=== PATIENT | female | born 1945 | race American Indian/Alaskan Native ===

== ENCOUNTER 2019-11-30 15:12 | Observation (INO) | payer MEDICARE ==
[2019-11-30] MEDS ORDERED: hydrALAZINE 20 MG/1 ML INJ IV ONE (16:11)
--- NOTE | 2019-11-30 16:12 | Emergency Department Report ---
ED General Adult HPI - General Chief complaint: High BP Stated complaint: HIGH BP/WEAKNESS Time Seen by Provider: 11/30/19 15:56 Source: patient, EMS (EMS documentation not available at this time.), RN notes reviewed Mode of arrival: Ambulatory Limitations: No Limitations, Physical Limitation - History of Present Illness Initial comments: This is a 74-year-old female. This patient is not known to myself previously. She has a history of hypertension. She ran out of her medications 4-6 weeks ago. She does not know the specific names of her medications. She did have a primary care doctor, on [place], but secondary to change in insurance, was not able to follow-up. Subsequently, was not able to get her antihypertensive medications refilled. She is brought to the hospital by EMS with a complaint of weakness, initially painless, dizziness, and feeling off balance. Her weakness and feeling off balance started at 11:00 this morning. There is initially no complaint of headache, neck pain, chest pain, abdominal pain, shortness of breath. She denies focal extremity weakness and or numbness. Symptoms worsen when she attempts to walk. There is no tinnitus, no change in auditory acuity. No recent viral syndrome/symptoms. -: Gradual, hour(s) Severity scale (0 -10): 0 Quality: other Consistency: other Improves with: other Worsens with: other Associated Symptoms: other - Related Data Allergies Allergy/AdvReac Type Severity Reaction Status Date / Time No Known Allergies Allergy Verified 11/30/19 17:15 ED Review of Systems ROS: Stated complaint: HIGH BP/WEAKNESS Other details as noted in HPI Constitutional: malaise. denies: fever Eyes: denies: eye discharge, vision change ENT: denies: congestion Respiratory: denies: wheezing Cardiovascular: denies: chest pain, syncope Gastrointestinal: denies: abdominal pain Genitourinary: denies: dysuria Musculoskeletal: denies: back pain Skin: denies: lesions Neurological: weakness, abnormal gait Psychiatric: anxiety Hematological/Lymphatic: denies: easy bleeding ED Past Medical Hx - Past Medical History Previous Medical History?: Yes Hx Hypertension: Yes - Surgical History Past Surgical History?: Yes - Social History Smoking Status: Never Smoker Substance Use Type: None ED Physical Exam - General Limitations: Physical Limitation General appearance: alert, in no apparent distress, anxious - Head Head exam: Present: atraumatic, normocephalic - Eye Eye exam: Present: normal appearance, PERRL, EOMI, other (visual acuity intact to finger counting and color perception at a close distance). Absent: nystagmus - ENT ENT exam: Present: normal exam, normal orophraynx, mucous membranes moist, normal external ear exam - Neck Neck exam: Present: normal inspection, full ROM. Absent: tenderness, meningismus - Respiratory Respiratory exam: Present: normal lung sounds bilaterally. Absent: respiratory distress - Cardiovascular Cardiovascular Exam: Present: regular rate, normal rhythm, normal heart sounds. Absent: bradycardia, tachycardia, irregular rhythm, systolic murmur, diastolic murmur, rubs, gallop - GI/Abdominal GI/Abdominal exam: Present: soft. Absent: distended, tenderness, guarding, rebound, rigid - Extremities Exam Extremities exam: Present: normal inspection, full ROM, other (2+ pulses noted in the bilateral upper and lower extremities. There is no long bony tenderness. The pelvis is stable. The muscular compartments are soft. There is no palpable cord. There is no redness, pus or streaking.). Absent: pedal edema, calf tenderness - Back Exam Back exam: Present: normal inspection, full ROM. Absent: tenderness, CVA tenderness (R), CVA tenderness (L), paraspinal tenderness, vertebral tenderness - Neurological Exam Neurological exam: Present: alert (there is no past-pointing. There is normal [id number]. There is no pronator drift), oriented X3, abnormal gait, other (there is no facial droop. The tongue is midline. The extraocular movements are intact bilaterally. There is 5/5 strength in the bilateral upper and lower extremities. Sensation is intact to light touch in the bilateral upper and lower extremities. Hearing is intact. Tongue is midline. Speech is fluid, lucent and intact. Appropriate thought content. V1, V2, V3 intact bilaterally. Walks with a steady gait. There is no past-pointing. There is normal [id number]. There is a negative Romberg examination.). Absent: motor sensory deficit - Psychiatric Psychiatric exam: Present: anxious - Skin Skin exam: Present: warm, dry, intact, normal color. Absent: rash ED Course Vital Signs 11/30/19 11/30/19 11/30/19 15:20 15:30 15:33 Temperature 97.2 F L Pulse Rate 69 69 69 Respiratory 17 18 17 Rate Blood Pressure 207/180 207/180 Blood Pressure 257/94 [Left] O2 Sat by Pulse 95 96 95 Oximetry 11/30/19 11/30/19 11/30/19 15:46 16:00 16:32 Temperature Pulse Rate 69 65 74 Respiratory 13 14 10 L Rate Blood Pressure 231/89 257/94 254/102 Blood Pressure [Left] O2 Sat by Pulse 96 97 99 Oximetry 11/30/19 11/30/19 11/30/19 16:46 17:00 17:16 Temperature Pulse Rate 70 77 81 Respiratory 15 19 20 Rate Blood Pressure 265/103 265/103 254/102 Blood Pressure [Left] O2 Sat by Pulse 98 99 100 Oximetry 11/30/19 11/30/19 11/30/19 17:30 17:46 18:00 Temperature Pulse Rate 82 82 78 Respiratory 15 16 14 Rate Blood Pressure 238/96 245/104 245/104 Blood Pressure [Left] O2 Sat by Pulse 100 100 100 Oximetry 11/30/19 11/30/19 11/30/19 19:00 19:15 19:30 Temperature Pulse Rate 86 87 87 Respiratory 17 16 16 Rate Blood Pressure 156/86 178/74 185/69 Blood Pressure [Left] O2 Sat by Pulse 99 97 97 Oximetry - Reevaluation(s) Reevaluation #1: 11/30/19 17:21 Differential diagnosis, including without limited to: Peripheral vertigo, central vertigo, posterior reversible hypertensive encephalopathy,/press, hypertensive urgency/emergency Assessment and plan: 74-year-old female presenting with extreme hypertension, feeling off balance, initially with no headache or neck pain. Has an NIH score of 0. Presents more than 4.5 hours after symptom onset, and is therefore not a TPA candidate. Her history, and physical examination do not suggest a large vessel occlusion. She is seen in consultation with stroke neurology, Dr. Dewey, who agrees with the aforementioned, we both agree that press syndrome is unlikely at this time, as the patient is not encephalopathic. While in the emergency room, the patient developed central chest pain, aching and dull in nature, which does not radiate anywhere. Her blood pressures in the 250s. She has equal pulses in the upper and lower extremities. Emergent CT scan ordered to exclude aortic dissection. Cardene ordered. Repeat EKG ordered. Pain medications ordered. We will reassess after CT scan has resulted. If no dissection is noted, plan to admit the patient to this medical service for hypertensive urgency, and chest pain risk stratification. Reevaluation #2: 11/30/19 20:01 CT angiogram chest, abdomen, pelvis negative for acute aortic disease. Blood pressure in the 180s. We will discontinue nicardipine drip at this time. Case is presented to the hospital nurse practitioner, Steven Mcghee, working with Dr Guzmán patient accepted to the medical service ED Medical Decision Making - Lab Data Result diagrams: 11/30/19 16:25 11/30/19 16:25 Vital Signs 11/30/19 11/30/19 11/30/19 15:20 15:30 15:33 Temperature 97.2 F L Pulse Rate 69 69 69 Respiratory 17 18 17 Rate Blood Pressure 207/180 207/180 Blood Pressure 257/94 [Left] O2 Sat by Pulse 95 96 95 Oximetry 11/30/19 11/30/19 11/30/19 15:46 16:00 16:32 Temperature Pulse Rate 69 65 74 Respiratory 13 14 10 L Rate Blood Pressure 231/89 257/94 254/102 Blood Pressure [Left] O2 Sat by Pulse 96 97 99 Oximetry 11/30/19 11/30/19 16:46 17:00 Temperature Pulse Rate 70 77 Respiratory 15 19 Rate Blood Pressure 265/103 265/103 Blood Pressure [Left] O2 Sat by Pulse 98 99 Oximetry Lab Results 11/30/19 11/30/19 11/30/19 Range/Units 16:25 16:25 16:25 WBC 8.8 (4.5-11.0) K/mm3 RBC 4.26 (3.65-5.03) M/mm3 Hgb 11.9 (10.1-14.3) gm/dl Hct 36.6 (30.3-42.9) % MCV 86 (79-97) fl MCH 28 (28-32) pg MCHC 33 (30-34) % RDW 15.4 H (13.2-15.2) % Plt Count 187 (140-440) K/mm3 Lymph % (Auto) 13.5 (13.4-35.0) % [place] % (Auto) 2.4 (0.0-7.3) % Eos % (Auto) 0.2 (0.0-4.3) % Baso % (Auto) 0.3 (0.0-1.8) % Lymph # 1.2 (1.2-5.4) K/mm3 [place] # 0.2 (0.0-0.8) K/mm3 Eos # 0.0 (0.0-0.4) K/mm3 Baso # 0.0 (0.0-0.1) K/mm3 Seg Neutrophils % 83.6 H (40.0-70.0) % Seg Neutrophils # 7.4 (1.8-7.7) K/mm3 PT 15.0 H (12.2-14.9) Sec. INR 1.16 H (0.87-1.13) APTT 28.7 (24.2-36.6) Sec. Thrombin Time 18.4 (15.1-19.6) Sec. Sodium 142 (137-145) mmol/L Potassium 3.0 L (3.6-5.0) mmol/L Chloride 103.9 (98-107) mmol/L Carbon Dioxide 20 L (22-30) mmol/L Anion Gap 21 mmol/L BUN 14 (7-17) mg/dL Creatinine 1.2 (0.7-1.2) mg/dL Estimated GFR 44 ml/min BUN/Creatinine Ratio 12 % Glucose 183 H (65-100) mg/dL POC Glucose (70-105) Calcium 9.0 (8.4-10.2) mg/dL Magnesium (1.7-2.3) mg/dL Total Bilirubin 0.40 (0.1-1.2) mg/dL AST 23 (5-40) units/L ALT 15 (7-56) units/L Alkaline Phosphatase 1076 H (35-129) units/L Total Creatine Kinase 195 H (30-135) units/L CK-MB (CK-2) 3.5 (0.0-4.0) ng/mL CK-MB (CK-2) Rel Index 1.7 (0-4) Troponin T < 0.010 (0.00-0.029) ng/mL Total Protein 7.5 (6.3-8.2) g/dL Albumin 4.1 (3.9-5) g/dL Albumin/Globulin Ratio 1.2 % TSH (0.270-4.200) mlU/mL Plasma/Serum Alcohol (0-0.07) % 11/30/19 11/30/19 11/30/19 Range/Units 16:25 16:25 16:25 WBC (4.5-11.0) K/mm3 RBC (3.65-5.03) M/mm3 Hgb (10.1-14.3) gm/dl Hct (30.3-42.9) % MCV (79-97) fl MCH (28-32) pg MCHC (30-34) % RDW (13.2-15.2) % Plt Count (140-440) K/mm3 Lymph % (Auto) (13.4-35.0) % [place] % (Auto) (0.0-7.3) % Eos % (Auto) (0.0-4.3) % Baso % (Auto) (0.0-1.8) % Lymph # (1.2-5.4) K/mm3 [place] # (0.0-0.8) K/mm3 Eos # (0.0-0.4) K/mm3 Baso # (0.0-0.1) K/mm3 Seg Neutrophils % (40.0-70.0) % Seg Neutrophils # (1.8-7.7) K/mm3 PT (12.2-14.9) Sec. INR (0.87-1.13) APTT (24.2-36.6) Sec. Thrombin Time (15.1-19.6) Sec. Sodium (137-145) mmol/L Potassium (3.6-5.0) mmol/L Chloride (98-107) mmol/L Carbon Dioxide (22-30) mmol/L Anion Gap mmol/L BUN (7-17) mg/dL Creatinine (0.7-1.2) mg/dL Estimated GFR ml/min BUN/Creatinine Ratio % Glucose (65-100) mg/dL POC Glucose (70-105) Calcium (8.4-10.2) mg/dL Magnesium 1.70 (1.7-2.3) mg/dL Total Bilirubin (0.1-1.2) mg/dL AST (5-40) units/L ALT (7-56) units/L Alkaline Phosphatase (35-129) units/L Total Creatine Kinase 192 H (30-135) units/L CK-MB (CK-2) (0.0-4.0) ng/mL CK-MB (CK-2) Rel Index (0-4) Troponin T (0.00-0.029) ng/mL Total Protein (6.3-8.2) g/dL Albumin (3.9-5) g/dL Albumin/Globulin Ratio % TSH 0.088 L (0.270-4.200) mlU/mL Plasma/Serum Alcohol < 0.01 (0-0.07) % 11/30/19 Range/Units 16:27 WBC (4.5-11.0) K/mm3 RBC (3.65-5.03) M/mm3 Hgb (10.1-14.3) gm/dl Hct (30.3-42.9) % MCV (79-97) fl MCH (28-32) pg MCHC (30-34) % RDW (13.2-15.2) % Plt Count (140-440) K/mm3 Lymph % (Auto) (13.4-35.0) % [place] % (Auto) (0.0-7.3) % Eos % (Auto) (0.0-4.3) % Baso % (Auto) (0.0-1.8) % Lymph # (1.2-5.4) K/mm3 [place] # (0.0-0.8) K/mm3 Eos # (0.0-0.4) K/mm3 Baso # (0.0-0.1) K/mm3 Seg Neutrophils % (40.0-70.0) % Seg Neutrophils # (1.8-7.7) K/mm3 PT (12.2-14.9) Sec. INR (0.87-1.13) APTT (24.2-36.6) Sec. Thrombin Time (15.1-19.6) Sec. Sodium (137-145) mmol/L Potassium (3.6-5.0) mmol/L Chloride (98-107) mmol/L Carbon Dioxide (22-30) mmol/L Anion Gap mmol/L BUN (7-17) mg/dL Creatinine (0.7-1.2) mg/dL Estimated GFR ml/min BUN/Creatinine Ratio % Glucose (65-100) mg/dL POC Glucose 187 H (70-105) Calcium (8.4-10.2) mg/dL Magnesium (1.7-2.3) mg/dL Total Bilirubin (0.1-1.2) mg/dL AST (5-40) units/L ALT (7-56) units/L Alkaline Phosphatase (35-129) units/L Total Creatine Kinase (30-135) units/L CK-MB (CK-2) (0.0-4.0) ng/mL CK-MB (CK-2) Rel Index (0-4) Troponin T (0.00-0.029) ng/mL Total Protein (6.3-8.2) g/dL Albumin (3.9-5) g/dL Albumin/Globulin Ratio % TSH (0.270-4.200) mlU/mL Plasma/Serum Alcohol (0-0.07) % - EKG Data EKG shows normal: sinus rhythm Rate: normal - EKG Data When compared to previous EKG there are: previous EKG unavailable 11/30/19 17:13 There is no prior EKG available for comparison. This is a sinus rhythm, with a left axis deviation, rate 70 bpm, DE interval is prolonged, QTC is prolonged, there is motion artifact, left ventricular hypertrophy, not a STEMI - Radiology Data Radiology results: report reviewed, image reviewed [facility] [address] [place] [address] Cat Scan Report Signed Patient: YEMI RODRIGUEZ MR#: [id number] : 1945 Acct:[id number] Age/Sex: 74 / F ADM Date: 11/30/19 Loc: ED Attending Dr: Ordering Physician: MAGGY ORTIZ MD Date of Service: 11/30/19 Procedure(s): CT head/brain wo con Accession Number(s): [id number] cc: MAGGY ORTIZ MD CT head/brain wo con INDICATION / CLINICAL INFORMATION: 74 years Female; Stroke symptoms. TECHNIQUE: Routine CT head without contrast. All CT scans at this location are performed using CT dose reduction for ALARA by means of automated exposure control. COMPARISON: None. FINDINGS: BRAIN / INTRACRANIAL CONTENTS: There is extensive cerebral white matter disease most consistent with advanced microvascular angiopathy. The findings include the ganglia capsular regions, greater on the left and correlation would be needed at regarding underlying acute ischemia given the extent of findings and patient's history of unspecified "stroke symptoms". There is mild cerebral atrophy. The ventricular system is correspondingly appropriate in size and configuration. There is no clear CT evidence of acute intracranial hemorrhage or significant mass effect. ORBITS: No significant abnormality of visualized orbits. SINUSES / MASTOIDS: There is a 2 cm retention cysts within the visualized inferior right maxillary sinus. CRANIOCERVICAL JUNCTION: No significant abnormality. ADDITIONAL FINDINGS: There is diffuse of The sclerotic/lytic appearance of the calvarium most compatible with Paget's disease. IMPRESSION: 1. There is extensive microvascular angiopathy as detailed above without clear CT evidence of acute intracranial hemorrhage. 2. There is extensive mixed sclerotic/lytic appearance of the calvarium most c onsistent with Paget's disease The study was specified as code stroke and called emergently to Dr. Ortiz in the ER at 3:49 PM Central standard time. Signer Name: Maggy Vitale MD Signed: 11/30/2019 4:46 PM Workstation Name: [id number] Transcribed By: MR Dictated By: Maggy Vitale MD Electronically Authenticated By: Maggy Vitale MD Signed Date/Time: 11/30/19 1646 Critical Care Time: Yes Critical care time in (mins) excluding proc time.: 60 Critical care attestation.: If time is entered above; I have spent that time in minutes in the direct care of this critically ill patient, excluding procedure time. ED Disposition Clinical Impression: Hypertensive urgency, malignant, Ataxia, Acute chest pain Disposition: - OP ADMIT IP TO THIS HOSP Is pt being admited?: Yes Does the pt Need Aspirin: Yes Condition: Stable Instructions: Chest Pain (ED)
[2019-11-30 16:36] LABS: Basophils % (Auto) 0.3 % (0.0-1.8); Eosinophils % (Auto) 0.2 % (0.0-4.3); Hematocrit 36.6 % (30.3-42.9); Hemoglobin 11.9 gm/dl (10.1-14.3); Lymphocytes # (Auto) 1.2 K/mm3 (1.2-5.4); Lymphocytes % (Auto) 13.5 % (13.4-35.0); Mean Corpuscular HGB Conc 33 % (30-34); Mean Corpuscular Volume 86 fl (79-97); Monocytes # (Auto) 0.2 K/mm3 (0.0-0.8); Monocytes % (Auto) 2.4 % (0.0-7.3); Platelet Count 187 K/mm3 (140-440); Red Blood Count 4.26 M/mm3 (3.65-5.03); Red Cell Distribution Width 15.4 % (13.2-15.2)
--- NOTE | 2019-11-30 16:41 | Emergency Department Report ---
ED Neuro Deficit HPI - General Chief Complaint: High BP Stated Complaint: HIGH BP/WEAKNESS Time Seen by Provider: 11/30/19 15:56 Source: patient, EMS Mode of arrival: Ambulatory Limitations: No Limitations - History of Present Illness Initial Comments: [facility] Tele[facility]urology [facility] Date of Service: 11/30/2019 16:14:54 Impression: RO Acute Ischemic Stroke Comments: 74 year old female who presents to the hospital because of dizziness, nausea, and poor balance as well as generalized weakness. Presentation is likely due to hypertensive encephalopathy vs small stroke. Mechanism of Stroke: Not Clear Metrics: Last Known Well: 11/30/2019 11:00:00 [employer] Notification Time: 11/30/2019 16:14:20 Arrival Time: 11/30/2019 15:12:00 Stamp Time: 11/30/2019 16:14:54 Time First Login Attempt: 11/30/2019 16:20:00 Video Start Time: 11/30/2019 16:20:00 Symptoms: dizziness NIHSS Start Assessment Time: 11/30/2019 16:32:40 Patient is not a candidate for tPA. Patient was not deemed candidate for tPA thrombolytics because of Last Well Known Above 4.5 Hours. Video End Time: 11/30/2019 16:37:00 CT head was reviewed. Presentation is not suggestive of Large Vessel Occlusive disease. Advanced imaging was not obtained as the presentation was not suggestive of Large Vessel Occlusive Disease. ED Physician notified of diagnostic impression and management plan on 11/30/2019 16:38:24 Our recommendations are outlined below. Recommendations: Activate Stroke Protocol Admission/Order Set Stroke/Telemetry Floor Neuro Checks Bedside Swallow Eval DVT Prophylaxis IV Fluids, Normal Saline Head of Bed Below 30 Degrees Euglycemia and Avoid Hyperthermia (PRN Acetaminophen) Antiplatelet Therapy Recommended Recommended Scan: MRI Head Without Contrast MRA Head and Neck Without Contrast When Available - Stroke Protocol Lipid Panel to Be Obtained, if Not Done in the Last Three Months Therapies: Physical Therapy, Occupational Therapy, Speech Therapy Assessment When Applicable Dysphaghia Screen: Swallow Evaluation, Bedside NPO Until Swallow Evaluation DVT prophylaxis: Choice of Primary Team Disposition: Follow up with Teleneurology Follow up Sign Out: Discussed with Emergency Department Provider History of Present Illness: Patient is a 74 year old Female. Patient was brought by private transportation with symptoms of dizziness 74 year old female with a history of untreated hypertension who presented to the hospital because of dizziness, difficulty walking, and nausea. Patient was noted to have elevated bp with systolic of 250's. CT head was reviewed. Examination: 1A: Level of Consciousness - Alert; keenly responsive + 0 1B: Ask Month and Age - Both Questions Right + 0 1C: Blink Eyes & Squeeze Hands - Performs Both Tasks + 0 2: Test Horizontal Extraocular Movements - Normal + 0 3: Test Visual Riley - No Visual Loss + 0 4: Test Facial Palsy (Use Grimace if Obtunded) - Normal symmetry + 0 5A: Test Left Arm Motor Drift - No Drift for 10 Seconds + 0 5B: Test Right Arm Motor Drift - No Drift for 10 Seconds + 0 6A: Test Left Leg Motor Drift - No Drift for 5 Seconds + 0 6B: Test Right Leg Motor Drift - No Drift for 5 Seconds + 0 7: Test Limb Ataxia (FNF/Heel-Reis) - No Ataxia + 0 8: Test Sensation - Normal; No sensory loss + 0 9: Test Language/Aphasia - Normal; No aphasia + 0 10: Test Dysarthria - Normal + 0 11: Test Extinction/Inattention - No abnormality + 0 NIHSS Score: 0 Patient was informed the Neurology Consult would happen via TeleHealth consult by way of interactive audio and video telecommunications and consented to receiving care in this manner. Due to the immediate potential for life-threatening deterioration due to underlying acute neurologic illness, I spent 35 minutes providing critical care. This time includes time for face to face visit via telemedicine, review of medical records, imaging studies and discussion of findings with providers, the patient and/or family. Dr Jennifer Dewey [employer] Case [id number] - Related Data Allergies/Adverse Reactions: Allergies Allergy/AdvReac Type Severity Reaction Status Date / Time No Known Allergies Allergy Unverified 11/30/19 16:18 ED Review of Systems ROS: Stated complaint: HIGH BP/WEAKNESS Other details as noted in HPI ED Past Medical Hx - Past Medical History Previous Medical History?: Yes Hx Hypertension: Yes - Surgical History Past Surgical History?: Yes - Social History Smoking Status: Never Smoker Substance Use Type: None ED Neuro Physical Exam - General Limitations: No Limitations Suspected Stroke: Yes - NIHSS Assessment Interval: Baseline 1a. Level of Consciousness: alert/keenly responsive 1b. LOC Questions: answers both correctly 1c. LOC Commands: performs tasks correctly 2. Best Gaze: normal 3. Visual: no visual loss 4. Facial Palsy: normal symmetrical movement 5b. Motor Arm Right: no drift 5a. Motor Arm Left: no drift 6a. Motor Leg Left: no drift 6b. Motor Leg Right: no drift 7. Limb Ataxia: absent 8. Sensory: normal 9. Best Language: no aphasia 10. Dysarthria: normal 11. Extinction/Inattention: no abnormality Total Score: 0 Stroke Severity: No Stroke Symptoms ED Course Vital Signs 11/30/19 11/30/19 15:20 15:33 Temperature 97.2 F L Pulse Rate 69 69 Respiratory 17 17 Rate Blood Pressure 207/180 Blood Pressure 257/94 [Left] O2 Sat by Pulse 95 95 Oximetry - Lab Data Result diagrams: 11/30/19 16:25 Lab Results 11/30/19 11/30/19 Range/Units 16:25 16:27 WBC 8.8 (4.5-11.0) K/mm3 RBC 4.26 (3.65-5.03) M/mm3 Hgb 11.9 (10.1-14.3) gm/dl Hct 36.6 (30.3-42.9) % MCV 86 (79-97) fl MCH 28 (28-32) pg MCHC 33 (30-34) % RDW 15.4 H (13.2-15.2) % Plt Count 187 (140-440) K/mm3 Lymph % (Auto) 13.5 (13.4-35.0) % [place] % (Auto) 2.4 (0.0-7.3) % Eos % (Auto) 0.2 (0.0-4.3) % Baso % (Auto) 0.3 (0.0-1.8) % Lymph # 1.2 (1.2-5.4) K/mm3 [place] # 0.2 (0.0-0.8) K/mm3 Eos # 0.0 (0.0-0.4) K/mm3 Baso # 0.0 (0.0-0.1) K/mm3 Seg Neutrophils % 83.6 H (40.0-70.0) % Seg Neutrophils # 7.4 (1.8-7.7) K/mm3 POC Glucose 187 H (70-105) Critical care attestation.: If time is entered above; I have spent that time in minutes in the direct care of this critically ill patient, excluding procedure time. ED Disposition Clinical Impression: Hypertensive encephalopathy Disposition: DC-[id number] OP ADMIT IP TO THIS HOSP Is pt being admited?: Yes Condition: Stable
[2019-11-30 16:49] LABS: INR 1.16 (0.87-1.13)
--- NOTE | 2019-11-30 16:50 | Cat Scan Report ---
CT head/brain wo con INDICATION / CLINICAL INFORMATION: 74 years Female; Stroke symptoms. TECHNIQUE: Routine CT head without contrast. All CT scans at this location are performed using CT dos e reduction for ALARA by means of automated exposure control. COMPARISON: None. FINDINGS: BRAIN / INTRACRANIAL CONTENTS: There is extensive cerebral white matter disease most consistent with advanced microvascular angiopathy. The findings include the ganglia capsular regions, greater on the left and correlation would be needed at regarding underlying acute ischemia given the extent of findi ngs and patient's history of unspecified "stroke symptoms". There is mild cerebral atrophy. The ventricular system is correspondingly appropriate in size and con figuration. There is no clear CT evidence of acute intracranial hemorrhage or significant mass effect . ORBITS: No significant abnormality of visualized orbits. SINUSES / MASTOIDS: There is a 2 cm retention cysts within the visualized inferior right maxillary si nus. CRANIOCERVICAL JUNCTION: No significant abnormality. ADDITIONAL FINDINGS: There is diffuse of The sclerotic/lytic appearance of the calvarium most compatible with Paget's disease. IMPRESSION: 1. There is extensive microvascular angiopathy as detailed above without clear CT evidence of acute i ntracranial hemorrhage. 2. 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 The study was specified as code stroke and called emergently to Dr. Ortiz in the ER at 3:49 PM [facility] standard time. Signer Name: Americo Vitale MD Signed: 11/30/2019 4:46 PM Workstation Name: [id number]
[2019-11-30 16:51] LABS: Partial Thromboplastin Time 28.7 Sec. (24.2-36.6); Thrombin Time 18.4 Sec. (15.1-19.6)
[2019-11-30 16:52] LABS: Creatine Kinase MB 3.5 ng/mL (0.0-4.0)
[2019-11-30 16:55] LABS: Alanine Aminotransferase 15 units/L (7-56); Albumin 4.1 g/dL (3.9-5); BUN/Creatinine Ratio 12; Blood Urea Nitrogen 14 mg/dL (7-17); Hemolysis Index 8
[2019-11-30] MEDS ORDERED: POTASSIUM CHLORIDE ER 20 MEQ TAB PO ONE (17:10)
[2019-11-30] MEDS ORDERED: NITROGLYCERIN 0.4 MG TAB SUBL SL PRN (17:15)
[2019-11-30] MEDS ORDERED: MORPHINE 4 MG/1 ML INJ IV ONE (17:15)
[2019-11-30] MEDS: POTASSIUM CHLORIDE 10 MEQ 10 MEQ/100 ML BAG IV SCH ×4 (17:36→22:01)
[2019-11-30] MEDS ORDERED: niCARdipine 50 MG in SODIUM CHLORIDE 0.9% 250ML 230 ML IV SCH (18:00)
[2019-11-30 18:39] LABS: Bilirubin,Urine NEG (Negative); Blood,Urine SM (Negative); Color,Urine Straw (Yellow); Mucus,Urine FEW /HPF; Urobilinogen,Urine < 2.0 mg/dL (<2.0)
--- NOTE | 2019-11-30 19:28 | Cat Scan Report ---
CTA CHEST WITH IV CONTRAST INDICATION: Chest pain TECHNIQUE: Axial CT images were obtained through the chest after injection of IV contrast. Coronal oblique 2-D reconstruction images were produced. 3 plane MIP reconstruction images were produced at an [employer] workstation. All CTs at this facility utilize dose reduction techniques including automated expos ure control, iterative reconstruction and weight based dosing when appropriate to reduce patient radi ation dose to as low as reasonable achievable. COMPARISON: No relevant prior studies are available for comparison. FINDINGS: Limited imaging of the thyroid gland demonstrates enlargement of both lobes with containing multiple low-density nodules. No filling defects are visualized within the central or segmental pulmonary arteries to suggest pulmo nary embolism. The heart is mildly enlarged. There is no pericardial effusion. The thoracic aorta radha ears normal in course and caliber. Evaluation of the lung parenchyma demonstrates no focal airspace d isease or pleural effusion. Incidental note is made of a 5 mm nodule in the left upper lobe (image 17 1). Limited imaging of the upper abdomen demonstrates a small hiatal hernia.. There is also a left adrena l mass which is incompletely visualized and is better detailed on the CT of the abdomen and pelvis pe rformed the same day. Evaluation of bony structures demonstrates no evidence of acute bony abnormality. Evaluation of soft tissue structures demonstrates a lipoma within the right anterior chest wall. IMPRESSION: 1. No evidence of pulmonary embolism or acute parenchymal process. 2. Incidental finding of 5 mm nodule in the right upper lobe. Follow-up for pulmonary nodule as liste d below. 3. Thyroid enlargement containing multiple hypodense nodules. This may represent substernal extension of goiter, but clinical correlation and possible thyroid ultrasound may be helpful for additional ev aluation. INCIDENTAL PULMONARY NODULE RECOMMENDATIONS Note These recommendations do not apply to lung cancer screening, patients with immunosuppression, o r patients with known primary cancer. Note Newly detected indeterminate nodule in persons 35 years of age or older. Persons under the age of 35 should not receive follow-up unless there is a known primary cancer. Low Risk Patient -- minimal or absent history of smoking and of other known risk factors. High Risk Patient -- history of smoking or of other known risk factors. Nodule dimensions are average of long and short axes, rounded to the nearest millimeter. Based on 2017 Fleischner Society Guidelines found in Radiology 2017 284:228-243. [email or web address] Signer Name: Kayleigh Yang MD Signed: 11/30/2019 7:24 PM Workstation Name: [id number]
--- NOTE | 2019-11-30 19:37 | Cat Scan Report ---
CTA of the abdomen and pelvis INDICATION / CLINICAL INFORMATION: Chest pain. Hypertension. TECHNIQUE: Axial CT images were obtained through the abdomen and pelvis after injection of IV contrast. 3 plane MIP / 3D reconstructions were produced. All CT scans at this location are performed using CT dose re duction for ALARA by means of automated exposure control. COMPARISON: CTA of the chest, 11/30/2019 FINDINGS: CTA ABDOMEN: Abdomen: There is a small hiatal hernia. The liver, gallbladder, spleen, pancreas, and right adrenal gland show no evidence of acute abnormality. There is a mixed density mass associated with the left a drenal gland measuring 2.8 x 2.8 cm. There are bilateral renal cysts, the largest of which measures 2 .7 cm. There is no free fluid or evidence of bowel obstruction. The abdominal aorta is normal in caliber with scattered atherosclerotic calcifications. There is no C T evidence to suggest dissection or aneurysm. Pelvis: There is moderate diverticulosis of the sigmoid colon without evidence for diverticulitis. No free pelvic fluid is identified. The urinary bladder appears normal. Evaluation of bony structures shows no acute abnormality. IMPRESSION: 1. No evidence of acute inflammatory or obstructive process within the abdomen or pelvis. 2. No evidence of abdominal aortic aneurysm or dissection. 3. Sigmoid diverticulosis without diverticulitis. 4. Mixed density 2.8 cm left adrenal mass. Signer Name: Kayleigh Yang MD Signed: 11/30/2019 7:32 PM Workstation Name: [id number]
[2019-11-30] MEDS ORDERED: ASPIRIN 81 MG TAB CHEW PO ONE (20:02)
--- NOTE | 2019-11-30 21:00 | History and Physical Report ---
History of Present Illness Date of examination: 11/30/19 Date of admission: 11/30/2019 Chief complaint: Headache and dizziness x3 days History of present illness: Patient is a 74-year-old female with a past medical history of hypertension and GERD who presents to ER with complaints of headache x3 days. Patient states worsening symptoms today with headache now accompanied by dizziness, nausea and weakness. Patient transported to [facility] via EMS for further care and evaluation. Patient reports she has been out of her "medications" x3 weeks and BP upon arrival 207/180. Patient seen and evaluated in the emergency department and upon arrival a code stroke was called as patient found to have symptoms that were suspicious for CVA. Tele-neurology was consulted in ED. Patient initiated on CVA protocol. Patient denies fever, chills, chest pain, palpitations, syncope, loss of bowel/bladder continence, vertigo, or recent ill contacts. No prior admission for review. No medication listed for reconciliation at time of admission. Past History Past Medical History: other (As noted in HPI) Past Surgical History: Other (Oophorectomy) Social history: no significant social history Family history: diabetes Medications and Allergies Allergies Allergy/AdvReac Type Severity Reaction Status Date / Time No Known Allergies Allergy Verified 11/30/19 17:15 Active Meds: Active Medications Potassium Chloride (Kcl 10meq/100ml) 10 meq in 100 mls @ 100 mls/hr IV Q1H DORENE Stop: 11/30/19 21:59 Last Admin: 11/30/19 20:31 Dose: 100 mls/hr Documented by: Nitroglycerin (Nitrostat) 0.4 mg SL .Q5MIN PRN PRN Reason: Chest Pain Review of Systems All systems: negative Ears, nose, mouth and throat: headache Cardiovascular: lightheadedness, high blood pressure Gastrointestinal: nausea Musculoskeletal: muscle weakness Neurological: headaches Exam - Physical Exam Narrative exam: - Physical Exam Narrative exam: General appearance: Present: Mild distress noted - EENT Eyes: Present: PERRL ENT: hearing intact, clear oral mucosa - Neck Neck: Present: supple, normal ROM - Respiratory Respiratory effort: normal Respiratory: bilateral: Clear to auscultation - Cardiovascular Heart rate: 78 Heart Sounds: Present: S1 & S2. Absent: rub, click - Extremities Extremities: pulses symmetrical, No edema Peripheral Pulses: within normal limits - Abdominal General gastrointestinal: Present: , non-distended, normal bowel sounds genitourinary: Present: normal - Integumentary Integumentary: Present: clear, warm, dry - Musculoskeletal Musculoskeletal:, strength equal bilaterally - Psychiatric Psychiatric: appropriate mood/affect, intact judgment & insight - Neurologic Neurologic: CNII-XII intact, moves all extremities - Constitutional Vitals: Temp Pulse Resp BP Pulse Ox 97.2 F L 78 17 165/69 99 11/30/19 15:20 11/30/19 20:30 11/30/19 20:30 11/30/19 20:30 11/30/19 20:30 Results - Labs CBC & Chem 7: 11/30/19 16:25 11/30/19 16:25 Labs: Laboratory Last Values WBC 8.8 K/mm3 (4.5-11.0) 11/30/19 16:25 RBC 4.26 M/mm3 (3.65-5.03) 11/30/19 16:25 Hgb 11.9 gm/dl (10.1-14.3) 11/30/19 16:25 Hct 36.6 % (30.3-42.9) 11/30/19 16:25 MCV 86 fl (79-97) 11/30/19 16:25 MCH 28 pg (28-32) 11/30/19 16:25 MCHC 33 % (30-34) 11/30/19 16:25 RDW 15.4 % (13.2-15.2) H 11/30/19 16:25 Plt Count 187 K/mm3 (140-440) 11/30/19 16:25 Lymph % (Auto) 13.5 % (13.4-35.0) 11/30/19 16:25 [place] % (Auto) 2.4 % (0.0-7.3) 11/30/19 16:25 Eos % (Auto) 0.2 % (0.0-4.3) 11/30/19 16:25 Baso % (Auto) 0.3 % (0.0-1.8) 11/30/19 16:25 Lymph # 1.2 K/mm3 (1.2-5.4) 11/30/19 16:25 [place] # 0.2 K/mm3 (0.0-0.8) 11/30/19 16:25 Eos # 0.0 K/mm3 (0.0-0.4) 11/30/19 16:25 Baso # 0.0 K/mm3 (0.0-0.1) 11/30/19 16:25 Seg Neutrophils % 83.6 % (40.0-70.0) H 11/30/19 16:25 Seg Neutrophils # 7.4 K/mm3 (1.8-7.7) 11/30/19 16:25 PT 15.0 Sec. (12.2-14.9) H 11/30/19 16:25 INR 1.16 (0.87-1.13) H 11/30/19 16:25 APTT 28.7 Sec. (24.2-36.6) 11/30/19 16:25 Thrombin Time 18.4 Sec. (15.1-19.6) 11/30/19 16:25 Sodium 142 mmol/L (137-145) 11/30/19 16:25 Potassium 3.0 mmol/L (3.6-5.0) L 11/30/19 16:25 Chloride 103.9 mmol/L (98-107) 11/30/19 16:25 Carbon Dioxide 20 mmol/L (22-30) L 11/30/19 16:25 Anion Gap 21 mmol/L 11/30/19 16:25 BUN 14 mg/dL (7-17) 11/30/19 16:25 Creatinine 1.2 mg/dL (0.7-1.2) 11/30/19 16:25 Estimated GFR 44 ml/min 11/30/19 16:25 BUN/Creatinine Ratio 12 % 11/30/19 16:25 Glucose 183 mg/dL (65-100) H 11/30/19 16:25 POC Glucose 187 (70-105) H 11/30/19 16:27 Calcium 9.0 mg/dL (8.4-10.2) 11/30/19 16:25 Magnesium 1.70 mg/dL (1.7-2.3) 11/30/19 16:25 Total Bilirubin 0.40 mg/dL (0.1-1.2) 11/30/19 16:25 AST 23 units/L (5-40) 11/30/19 16:25 ALT 15 units/L (7-56) 11/30/19 16:25 Alkaline Phosphatase 1076 units/L (35-129) H 11/30/19 16:25 Total Creatine Kinase 192 units/L (30-135) H 11/30/19 16:25 Total Creatine Kinase 195 units/L (30-135) H 11/30/19 16:25 CK-MB (CK-2) 3.5 ng/mL (0.0-4.0) 11/30/19 16:25 CK-MB (CK-2) Rel Index 1.7 (0-4) 11/30/19 16:25 Troponin T < 0.010 ng/mL (0.00-0.029) 11/30/19 16:25 Total Protein 7.5 g/dL (6.3-8.2) 11/30/19 16:25 Albumin 4.1 g/dL (3.9-5) 11/30/19 16:25 Albumin/Globulin Ratio 1.2 % 11/30/19 16:25 TSH 0.088 mlU/mL (0.270-4.200) L 11/30/19 16:25 Free T4 1.33 ng/dL (0.76-1.46) 11/30/19 17:30 Urine Color Straw (Yellow) 11/30/19 18:16 Urine Turbidity Clear (Clear) 11/30/19 18:16 Urine pH 7.0 (5.0-7.0) 11/30/19 18:16 Ur Specific [place] 1.011 (1.003-1.030) 11/30/19 18:16 Urine Protein 100 mg/dl mg/dL (Negative) 11/30/19 18:16 Urine Glucose (UA) 50 mg/dL (Negative) 11/30/19 18:16 Urine Ketones Neg mg/dL (Negative) 11/30/19 18:16 Urine Blood Sm (Negative) 11/30/19 18:16 Urine Nitrite Neg (Negative) 11/30/19 18:16 Urine Bilirubin Neg (Negative) 11/30/19 18:16 Urine Urobilinogen < 2.0 mg/dL (<2.0) 11/30/19 18:16 Ur Leukocyte Esterase Tr (Negative) 11/30/19 18:16 Urine WBC (Auto) 2.0 /HPF (0.0-6.0) 11/30/19 18:16 Urine RBC (Auto) 8.0 /HPF (0.0-6.0) 11/30/19 18:16 U Epithel Cells (Auto) < 1.0 /HPF (0-13.0) 11/30/19 18:16 Urine Mucus Few /HPF 11/30/19 18:16 Plasma/Serum Alcohol < 0.01 % (0-0.07) 11/30/19 16:25 - Imaging and Cardiology Imaging and Cardiology: CTA CHEST WITH IV CONTRAST IMPRESSION: 1. No evidence of pulmonary embolism or acute parenchymal process. 2. Incidental finding of 5 mm nodule in the right upper lobe. Follow-up for pulmonary nodule as listed below. 3. Thyroid enlargement containing multiple hypodense nodules. This may represent substernal extension of goiter, but clinical correlation and possible thyroid ultrasound may be helpful for additional evaluation. CTA ABDOMEN: IMPRESSION: 1. No evidence of acute inflammatory or obstructive process within the abdomen or pelvis. 2. No evidence of abdominal aortic aneurysm or dissection. 3. Sigmoid diverticulosis without diverticulitis. 4. Mixed density 2.[address] left [address] mass. CT HEAD IMPRESSION: 1. There is extensive microvascular angiopathy as detailed above without clear CT evidence of acute intracranial hemorrhage. 2. 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 Assessment and Plan Assessment and plan: Hypertensive urgency (malignant) -BP on admission 201/125 -Hx Hypertension -Continue to monitor BP -Resume home antihypertensive meds to optimize BP -IV antihypertensive when necessary R/O TIA -CT Head negative -Tele-Neurology consulted; recommendations appreciated -MRI brain pending -Neuro Checks -Lipid panel pending -Continue statin -Neurology consulted Hypokalemia -Potassium on admission 3.0 -Replaced in the ER -Likely secondary to n/v -Follow-up on repeat potassium labs -Continue to monitor replete prn DVT prophylaxis -SCDs bilateral extremities -heparin subq Advance Directives: No VTE prophylaxis?: Chemical Plan of care discussed with patient/family: Yes
[2019-11-30] MEDS ORDERED: MAGNESIUM HYDROXIDE (MOM) ORAL LIQD UDC PO PRN (21:19)
[2019-11-30] MEDS ORDERED: ONDANSETRON 4 MG/2 ML INJ IV PRN (21:19)
[2019-11-30] MEDS ORDERED: MORPHINE 2 MG/1 ML INJ IV PRN (21:19)
[2019-11-30] MEDS ORDERED: METOCLOPRAMIDE 10 MG TAB PO PRN (21:19)
[2019-11-30] MEDS ORDERED: hydrALAZINE 20 MG/1 ML INJ IV PRN (21:19)
[2019-11-30] MEDS ORDERED: ACETAMINOPHEN 325 MG TAB PO PRN ×2 (21:19)
[2019-11-30] MEDS: HEPARIN 5,000 UNIT/1 ML VIAL SUB-Q SCH (23:32)
[2019-11-30] MEDS: FAMOTIDINE 20 MG/2 ML INJ IV SCH (23:33)
[2019-12-01] MEDS: hydrALAZINE 20 MG/1 ML INJ IV PRN ×5 (00:27→20:27)
[2019-12-01 04:58] LABS: Basophils % (Auto) 0.4 % (0.0-1.8); Hematocrit 34.9 % (30.3-42.9); Hemoglobin 11.5 gm/dl (10.1-14.3); Lymphocytes # (Auto) 1.2 K/mm3 (1.2-5.4); Lymphocytes % (Auto) 12.2 % (13.4-35.0); Mean Corpuscular HGB Conc 33 % (30-34); Mean Corpuscular Volume 84 fl (79-97); Monocytes # (Auto) 0.8 K/mm3 (0.0-0.8); Platelet Count 206 K/mm3 (140-440); Red Blood Count 4.16 M/mm3 (3.65-5.03); Red Cell Distribution Width 15.3 % (13.2-15.2)
[2019-12-01 05:55] LABS: BUN/Creatinine Ratio 15; Blood Urea Nitrogen 15 mg/dL (7-17); Calcium 9.5 mg/dL (8.4-10.2); Chol/HDL Ratio 3.56 %; HDL Cholesterol 64 mg/dL (40-59); Hemolysis Index 2; LDL Cholesterol,Direct 157 mg/dL (50-130)
[2019-12-01] MEDS: FAMOTIDINE 20 MG/2 ML INJ IV SCH ×2 (09:14→21:25)
[2019-12-01] MEDS: HEPARIN 5,000 UNIT/1 ML VIAL SUB-Q SCH ×2 (09:15→21:25)
[2019-12-01] MEDS ORDERED: NON-FORMULARY EACH (Losartan [Cozaar] 100 MG) PO SCH (10:00)
[2019-12-01] MEDS ORDERED: hydroCHLOROthiazide 12.5 MG CAP PO SCH (10:00)
[2019-12-01] MEDS ORDERED: LOSARTAN 50 MG TAB PO SCH (10:00)
--- NOTE | 2019-12-01 10:33 | Consultation ---
History of Present Illness Consult date: 12/01/19 Reason for Consult: haedache and dizziness History of present illness: Patient is a 74-year-old female with a past medical history of hypertension and GERD who presents to ER with complaints of headache x3 days. Patient states worsening symptoms today with headache now accompanied by dizziness, nausea and weakness. Patient transported to [facility] via EMS for further care and evaluation. Patient reports she has been out of her "medications" x2 years and last she seen PCP is in 2018 !!! BP upon arrival 207/180. Patient seen and evaluated in the emergency department and upon arrival a code stroke was called as patient found to have symptoms that were suspicious for CVA. Tele-neurology was consulted in ED. Patient initiated on CVA protocol. Patient denies fever, chills, chest pain, palpitations, syncope, loss of bowel/bladder continence, vertigo, or recent ill contacts. No prior admission for review. No medication listed for reconciliation at time of admission. Today BP is 224/82 she could not undergo MRI brain due to anxiety according to her her headache is better , she denied smoking or alcohol intake labs are remarkable for CT brain normal LDL# 157 Alkaline ph.# 1076 bun/cr.# 15/1 Past History Past Medical History: other (As noted in HPI) Past Surgical History: Other (Oophorectomy) Social history: no significant social history Family history: diabetes Past History Past Medical History: hypertension, other (As noted in HPI) Past Surgical History: Other (Oophorectomy) Social history: no significant social history Family history: diabetes Medications and Allergies Allergies Allergy/AdvReac Type Severity Reaction Status Date / Time No Known Allergies Allergy Verified 11/30/19 17:15 Home Medications Medication Instructions Recorded Confirmed Last Taken Type Losartan [Cozaar] 100 mg PO QDAY 12/01/19 12/01/19 Unknown History amLODIPine [Norvasc] 10 mg PO DAILY 12/01/19 12/01/19 Unknown History hydroCHLOROthiazide [Hctz] 12.5 mg PO QDAY 12/01/19 12/01/19 Unknown History Active Meds: Active Medications Acetaminophen (Tylenol) 650 mg PO Q4H PRN PRN Reason: Pain MILD(1-3)/Fever >100.5/SIDDIQUI Amlodipine Besylate (Amlodipine) 10 mg PO DAILY [facility] Aspirin (Aspirin) 325 mg PO QDAY [facility] Atorvastatin Calcium (Lipitor) 40 mg PO QHS [facility] Last Admin: 11/30/19 23:32 Dose: 40 mg Documented by: Famotidine (Pepcid) 10 mg IV BID [facility] Last Admin: 12/01/19 09:14 Dose: 10 mg Documented by: Heparin Sodium (Porcine) (Heparin) 5,000 unit SUB-Q Q12HR [facility] Last Admin: 12/01/19 09:15 Dose: 5,000 unit Documented by: Hydralazine HCl (Apresoline) 10 mg IV Q4H PRN PRN Reason: Hypertension Last Admin: 12/01/19 09:14 Dose: 10 mg Documented by: Hydrochlorothiazide (Hctz) 12.5 mg PO QDAY [facility] Ceftriaxone Sodium (Rocephin/Ns 1 Gm/50 Ml) 1 gm in 50 mls @ 100 mls/hr IV Q24HR [facility]; Protocol Labetalol HCl (Labetalol) 10 mg IV Q5MIN PRN PRN Reason: to maintain SBP < 180 Losartan Potassium (Cozaar) 100 mg PO QDAY [facility] Magnesium Hydroxide (Milk Of Magnesia) 30 ml PO Q4H PRN PRN Reason: Constipation Metoclopramide HCl (Reglan) 10 mg PO Q6H PRN PRN Reason: Nausea And Vomiting Morphine Sulfate (Morphine) 2 mg IV Q4H PRN PRN Reason: Pain, Moderate (4-6) Nitroglycerin (Nitrostat) 0.4 mg SL .Q5MIN PRN PRN Reason: Chest Pain Ondansetron HCl (Zofran) 4 mg IV Q8H PRN PRN Reason: Nausea And Vomiting Sodium Chloride (Sodium Chloride Flush Syringe 10 Ml) 10 ml IV BID [facility] Last Admin: 12/01/19 00:06 Dose: Not Given Documented by: Sodium Chloride (Sodium Chloride Flush Syringe 10 Ml) 10 ml IV PRN PRN PRN Reason: LINE FLUSH Review of Systems All systems: negative Physical Examination - Vital Signs Vital Signs: Vital Signs Temp Pulse Resp BP Pulse Ox 97.2 F L 69 17 207/180 95 11/30/19 15:20 11/30/19 15:20 11/30/19 15:20 11/30/19 15:20 11/30/19 15:20 - Constitutional General appearance: uncomfortable - EENT EENT: Present: PERRL, mucous membranes moist - Respiratory Respiratory: Present: chest non-tender, lungs clear, normal breath sounds, rhonchi - Cardiovascular Cardiovascular: Present: regular rate, normal S1, normal S2 Extremities: Present: no peripheral edema bilatateraly, no clubbing, cyanosis - Gastrointestinal Gastrointestinal: Present: normoactive bowel sounds - Integumentary Integumentary: Present: normal - Neurologic Cranial nerve examination: PERRL, EOMI, V1/V2/V3 grossly intact, intact Speech examination: intact Sensorimotor examination: intact Detailed motor examination: grossly full strength in Detailed sensory examination: intact Reflexes: 1+: ankle, bicep, knee, tricep - Level of Consciousness 1a. Level of Consciousness: alert/keenly responsive - LOC Questions 1b. LOC Questions: answers both correctly - LOC Command 1c. LOC Commands: performs tasks correctly - Best Gaze 2. Best Gaze: normal - Visual 3. Visual: no visual loss - Facial Palsy 4. Facial Palsy: normal symmetrical movement - Motor Arm 5a. Motor Arm Left: no drift 5b. Motor Arm Right: no drift - Motor Leg 6a. Motor Leg Left: no drift 6b. Motor Leg Right: no drift - Limb Ataxia 7. Limb Ataxia: absent - Sensory 8. Sensory: normal - Best Language 9. Best Language: no aphasia - Dysarthria 10. Dysarthria: normal - Extinction and Inattention 11. Extinction/Inattention: no abnormality - Scoring Total Score: 0 Stroke Severity: No Stroke Symptoms Results - Laboratory Findings CBC and BMP: 12/01/19 04:31 12/01/19 04:31 Abnormal Lab Findings: Abnormal Labs 11/30/19 11/30/19 11/30/19 16:25 16:25 16:25 RDW 15.4 H Lymph % (Auto) [place] % (Auto) Seg Neutrophils % 83.6 H PT 15.0 H INR 1.16 H Potassium 3.0 L Carbon Dioxide 20 L Glucose 183 H POC Glucose Alkaline Phosphatase 1076 H Total Creatine Kinase 195 H Cholesterol LDL Cholesterol Direct HDL Cholesterol TSH 11/30/19 11/30/19 11/30/19 16:25 16:25 16:27 RDW Lymph % (Auto) [place] % (Auto) Seg Neutrophils % PT INR Potassium Carbon Dioxide Glucose POC Glucose 187 H Alkaline Phosphatase Total Creatine Kinase 192 H Cholesterol LDL Cholesterol Direct HDL Cholesterol TSH 0.088 L 12/01/19 12/01/19 04:31 04:31 RDW 15.3 H Lymph % (Auto) 12.2 L [place] % (Auto) 8.0 H Seg Neutrophils % 79.4 H PT INR Potassium Carbon Dioxide Glucose 122 H POC Glucose Alkaline Phosphatase Total Creatine Kinase Cholesterol 228 H LDL Cholesterol Direct 157 H HDL Cholesterol 64 H TSH Assessment and Plan 1- This is 74 ys old female prsesnted to hospital with complaint of dizziness and headache X 3 days she is with long standing hx of HTN off her medications X 2 years she last seen PCP in 2018 in ER BP is 207/108 and this morning is 224/82 ,exam is non focal , finding from Hx and exam is suggestive of hypertensive emergency with the possibility of PRESS can not be excluded ,CVA can not be excluded 2- Lytic skull lysion on CT brain with Alk. Ph. is 1076 3- [id number] PLAN 1- Control BP < 140/85 2- Brain MRI she will need ativan before due to her underlying anxiety 3- Carotid doppler./ECHO 4- ASA 81 mg daily 5- Lipitor 40 mg daily 6- Work up for the elevated Alk. Ph. 7- DVT precaution 8- PT/ST screen will follow up after work up is done Finding is D/W pt. and her family
--- NOTE | 2019-12-01 13:57 | Progress Note ---
Assessment and Plan Assessment and plan: 74-year-old woman who presents to the hospital stating that she ran out of her blood pressure meds 6 weeks previously. She complains of dizziness nausea headache. She had issues with her insurance and cannot get an appointment, therefore could not get her medications refilled. She denies any focal we akness, however she is admitting to chest pain and shortness of breath on exertion. Chest pain Obtain stress test and echo Hypokalemia; repleted, resolved Hypertensive urgency Optimize BP meds. 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 There is no suggestion of any strokelike or TIA like symptoms. MRI was canceled, there is no indication for MRI. dvt ppx- heparin History Interval history: Review of systems Constitutional: No fevers, no malaise, no joint pains CVS: No chest pain, no orthopnea, no pedal edema GI: No abdominal pain, no diarrhea, no vomiting, no constipation Respiratory: , no wheezing, no coughing Hospitalist Physical - Physical exam Narrative exam: General.: Appears well, no distress, nontoxic HEENT: Moist mucous membranes, extraocular muscles intact, no lymphadenopathy Neck: supple Cardiac: S1-S2 heard Lungs: clear to auscultation bilaterally Abdomen: soft , nontender, nondistended, bowel sounds positive Extremities: no edema clubbing or cyanosis Skin: no rash or lesions Neurologic: no gross focal deficits Psych: calm, and cooperative - Constitutional Vitals: Temp Pulse Resp BP Pulse Ox 98.0 F 87 18 191/74 95 12/01/19 10:38 12/01/19 11:41 12/01/19 10:38 12/01/19 10:38 12/01/19 10:38 YRN score - Yrn Score Age > 65: (1) Yes Aspirin use within the Past 7 Days: (0) No 3 or more CAD Risk Factors: (1) Yes 2 or more Angina events in past 24 hrs: (1) Yes Known CAD with more than 50% Stenosis: (0) No Elevated Cardiac Markers: (0) No ST Deviation Greater than 0.5mm: (0) No YRN Score: 3 Results - Labs CBC & Chem 7: 12/01/19 04:31 12/01/19 04:31 Labs: Laboratory Last Values WBC 9.5 K/mm3 (4.5-11.0) 12/01/19 04:31 RBC 4.16 M/mm3 (3.65-5.03) 12/01/19 04:31 Hgb 11.5 gm/dl (10.1-14.3) 12/01/19 04:31 Hct 34.9 % (30.3-42.9) 12/01/19 04:31 MCV 84 fl (79-97) 12/01/19 04:31 MCH 28 pg (28-32) 12/01/19 04:31 MCHC 33 % (30-34) 12/01/19 04:31 RDW 15.3 % (13.2-15.2) H 12/01/19 04:31 Plt Count 206 K/mm3 (140-440) 12/01/19 04:31 Lymph % (Auto) 12.2 % (13.4-35.0) L 12/01/19 04:31 [place] % (Auto) 8.0 % (0.0-7.3) H 12/01/19 04:31 Eos % (Auto) 0.0 % (0.0-4.3) 12/01/19 04:31 Baso % (Auto) 0.4 % (0.0-1.8) 12/01/19 04:31 Lymph # 1.2 K/mm3 (1.2-5.4) 12/01/19 04:31 [place] # 0.8 K/mm3 (0.0-0.8) 12/01/19 04:31 Eos # 0.0 K/mm3 (0.0-0.4) 12/01/19 04:31 Baso # 0.0 K/mm3 (0.0-0.1) 12/01/19 04:31 Seg Neutrophils % 79.4 % (40.0-70.0) H 12/01/19 04:31 Seg Neutrophils # 7.5 K/mm3 (1.8-7.7) 12/01/19 04:31 PT 15.0 Sec. (12.2-14.9) H 11/30/19 16:25 INR 1.16 (0.87-1.13) H 11/30/19 16:25 APTT 28.7 Sec. (24.2-36.6) 11/30/19 16:25 Thrombin Time 18.4 Sec. (15.1-19.6) 11/30/19 16:25 Sodium 142 mmol/L (137-145) 12/01/19 04:31 Potassium 4.2 mmol/L (3.6-5.0) D 12/01/19 04:31 Chloride 104.9 mmol/L (98-107) 12/01/19 04:31 Carbon Dioxide 22 mmol/L (22-30) 12/01/19 04:31 Anion Gap 19 mmol/L 12/01/19 04:31 BUN 15 mg/dL (7-17) 12/01/19 04:31 Creatinine 1.0 mg/dL (0.7-1.2) 12/01/19 04:31 Estimated GFR > 60 ml/min 12/01/19 04:31 BUN/Creatinine Ratio 15 % 12/01/19 04:31 Glucose 122 mg/dL (65-100) H 12/01/19 04:31 POC Glucose 117 (70-105) H 12/01/19 11:25 Hemoglobin A1c 6.0 % (4-6) 11/30/19 16:25 Calcium 9.5 mg/dL (8.4-10.2) 12/01/19 04:31 Magnesium 1.70 mg/dL (1.7-2.3) 11/30/19 16:25 Total Bilirubin 0.40 mg/dL (0.1-1.2) 11/30/19 16:25 AST 23 units/L (5-40) 11/30/19 16:25 ALT 15 units/L (7-56) 11/30/19 16:25 Alkaline Phosphatase 1076 units/L (35-129) H 11/30/19 16:25 Total Creatine Kinase 192 units/L (30-135) H 11/30/19 16:25 Total Creatine Kinase 195 units/L (30-135) H 11/30/19 16:25 CK-MB (CK-2) 3.5 ng/mL (0.0-4.0) 11/30/19 16:25 CK-MB (CK-2) Rel Index 1.7 (0-4) 11/30/19 16:25 Troponin T < 0.010 ng/mL (0.00-0.029) 11/30/19 16:25 Total Protein 7.5 g/dL (6.3-8.2) 11/30/19 16:25 Albumin 4.1 g/dL (3.9-5) 11/30/19 16:25 Albumin/Globulin Ratio 1.2 % 11/30/19 16:25 Triglycerides 71 mg/dL (2-149) 12/01/19 04:31 Cholesterol 228 mg/dL (50-199) H 12/01/19 04:31 LDL Cholesterol Direct 157 mg/dL (50-130) H 12/01/19 04:31 HDL Cholesterol 64 mg/dL (40-59) H 12/01/19 04:31 Cholesterol/HDL Ratio 3.56 % 12/01/19 04:31 TSH 0.088 mlU/mL (0.270-4.200) L 11/30/19 16:25 Free T4 1.33 ng/dL (0.76-1.46) 11/30/19 17:30 Urine Color Straw (Yellow) 11/30/19 18:16 Urine Turbidity Clear (Clear) 11/30/19 18:16 Urine pH 7.0 (5.0-7.0) 11/30/19 18:16 Ur Specific [place] 1.011 (1.003-1.030) 11/30/19 18:16 Urine Protein 100 mg/dl mg/dL (Negative) 11/30/19 18:16 Urine Glucose (UA) 50 mg/dL (Negative) 11/30/19 18:16 Urine Ketones Neg mg/dL (Negative) 11/30/19 18:16 Urine Blood Sm (Negative) 11/30/19 18:16 Urine Nitrite Neg (Negative) 11/30/19 18:16 Urine Bilirubin Neg (Negative) 11/30/19 18:16 Urine Urobilinogen < 2.0 mg/dL (<2.0) 11/30/19 18:16 Ur Leukocyte Esterase Tr (Negative) 11/30/19 18:16 Urine WBC (Auto) 2.0 /HPF (0.0-6.0) 11/30/19 18:16 Urine RBC (Auto) 8.0 /HPF (0.0-6.0) 11/30/19 18:16 U Epithel Cells (Auto) < 1.0 /HPF (0-13.0) 11/30/19 18:16 Urine Mucus Few /HPF 11/30/19 18:16 Plasma/Serum Alcohol < 0.01 % (0-0.07) 11/30/19 16:25 Active Medications - Current Medications Current Medications: Generic Name Dose Route Start Last Admin Trade Name Freq PRN Reason Stop Dose Admin Acetaminophen 650 mg 11/30/19 21:19 Tylenol PO Q4H PRN Pain MILD(1-3)/Fever >100.5/SIDDIQUI Amlodipine Besylate 10 mg 12/01/19 10:00 Amlodipine PO DAILY [facility] Aspirin 325 mg 12/01/19 10:00 Aspirin PO QDAY [facility] Atorvastatin Calcium 40 mg 11/30/19 22:00 11/30/19 23:32 Lipitor PO 40 mg QHS DORENE Administration Famotidine 10 mg 11/30/19 22:00 12/01/19 09:14 Pepcid IV 10 mg BID [facility] Administration Heparin Sodium (Porcine) 5,000 unit 11/30/19 22:00 12/01/19 09:15 Heparin SUB-Q 5,000 unit Q12HR [facility] Administration Hydralazine HCl 10 mg 11/30/19 21:54 12/01/19 09:14 Apresoline IV 10 mg Q4H PRN Administration Hypertension Hydrochlorothiazide 12.5 mg 12/01/19 10:00 Hctz PO QDAY [facility] Ceftriaxone Sodium 1 gm in 50 mls @ 100 mls/hr 12/01/19 10:00 Rocephin/Ns 1 Gm/50 Ml IV Q24HR [facility] Protocol Labetalol HCl 10 mg 11/30/19 21:19 Labetalol IV Q5MIN PRN to maintain SBP < 180 Losartan Potassium 100 mg 12/01/19 10:00 Cozaar PO QDAY [facility] Magnesium Hydroxide 30 ml 11/30/19 21:19 Milk Of Magnesia PO Q4H PRN Constipation Metoclopramide HCl 10 mg 11/30/19 21:19 Reglan PO Q6H PRN Nausea And Vomiting Morphine Sulfate 2 mg 11/30/19 21:19 Morphine IV Q4H PRN Pain, Moderate (4-6) Nitroglycerin 0.4 mg 11/30/19 17:15 Nitrostat SL .Q5MIN PRN Chest Pain Ondansetron HCl 4 mg 11/30/19 21:19 Zofran IV Q8H PRN Nausea And Vomiting Sodium Chloride 10 ml 11/30/19 22:00 12/01/19 00:06 Sodium Chloride Flush Syringe 10 Ml IV Not Given BID DORENE Sodium Chloride 10 ml 11/30/19 21:19 Sodium Chloride Flush Syringe 10 Ml IV PRN PRN LINE FLUSH
[2019-12-01] MEDS: ASPIRIN 325 MG TAB PO SCH (14:03)
[2019-12-01] MEDS: amLODIPine 10 MG TAB PO SCH (14:04)
[2019-12-01] MEDS: cefTRIAXone/NS 1 GM/50 ML 1 GM/50 ML BAG IV SCH (18:59)
[2019-12-02] MEDS: hydrALAZINE 20 MG/1 ML INJ IV PRN (04:19)
[2019-12-02] MEDS ORDERED: REGADENOSON 0.4 MG/5 ML INJ IV ONE (08:07)
--- NOTE | 2019-12-02 09:11 | Discharge Summary ---
Providers - Providers Date of Admission: 11/30/19 20:03 Attending physician: EMY SULLIVAN MD 11/30/19 21:19 Occupational Therapy Evaluate and Treat [CONS] Routine Comment: Reason For Exam: Neuro deficits Physical Therapy Evaluation and Treat [CONS] Routine Comment: Reason For Exam: Neuro deficits 11/30/19 21:58 Consult to Physician [CONS] Routine Comment: Consulting Provider: SHELBY MARI Physician Instructions: Reason For Exam: r/o tia 11/30/19 22:03 Speech Therapy Evaluation and Treat [CONS] Routine Reason For Exam: swallow eval 12/01/19 14:04 Consult to Physician [CONS] Routine Comment: Consulting Provider: TOM JHAVERI Physician Instructions: Reason For Exam: adrenal mass, per Dr Al request Primary care physician: [employer]IVIL L[employer]ATION ATTORNEY Hospitalization Condition: Stable Hospital course: CTA chest shows right upper lung nodule 6 mm, needs follow-up in 3 to 6 months Questionable thyroid nodule; obtain thyroid ultrasound, outpatient follow-up CTA abdomen and pelvis shows left adrenal mass; obtain renal ultrasound, urology consult 74-year-old woman who presents to the hospital stating that she ran out of her blood pressure meds 6 weeks previously. She complains of dizziness nausea headache. She had issues with her insurance and cannot get an appointment, therefore could not get her medications refilled. She denies any focal weakness, however she is admitting to chest pain and shortness of breath on exertion. Chest pain likely due to hypertensive urgency. Stress test negative, echo showed preserved EF. No further work-up indicated Hypokalemia; repleted, resolved Hypertensive urgency Optimized BP meds. Paget's disease of the skull Outpatient endocrinology follow-up recommended. Subclinical hyperthyroidism Depressed TSH, with normal free T4, outpatient endocrine follow-up Lung nodule; recommend follow-up CT scan of chest in 3 to 6 months Questionable thyroid nodule; outpatient thyroid ultrasound, endocrine follow-up Left adrenal mass; outpatient urology follow-up. Patient has not had any reported focal weakness slurred speech, aphasia or dysphasia. There is no suggestion of any strokelike or TIA like symptoms. MRI was canceled, there is no indication for MRI. dvt ppx- heparin The patient states that she is establishing with a PCP on Wednesday., Preventative health counseling performed for 17 minutes Disposition: TO HOME OR SELFCARE Time spent for discharge: 33 mins Core Measure Documentation - Palliative Care Palliative Care/ Comfort Measures: Not Applicable - Core Measures Any of the following diagnoses?: none Exam - Constitutional Vitals: Temp Pulse Resp BP Pulse Ox 98.6 F 66 18 162/63 97 12/02/19 07:22 12/02/19 07:22 12/02/19 04:13 12/02/19 07:22 12/02/19 07:22 General appearance: Present: no acute distress, well-nourished - EENT Eyes: Present: PERRL ENT: hearing intact, clear oral mucosa - Neck Neck: Present: supple, normal ROM - Respiratory Respiratory effort: normal Respiratory: bilateral: CTA - Cardiovascular Heart Sounds: Present: S1 & S2. Absent: rub, click - Extremities Extremities: pulses symmetrical, No edema Peripheral Pulses: within normal limits - Abdominal General gastrointestinal: Present: soft, non-tender, non-distended, normal bowel sounds Female genitourinary: Present: normal - Integumentary Integumentary: Present: clear, warm, dry - Musculoskeletal Musculoskeletal: gait normal, strength equal bilaterally - Psychiatric Psychiatric: appropriate mood/affect, intact judgment & insight - Neurologic Neurologic: CNII-XII intact, moves all extremities Plan Additional Instructions: You have a thyroid nodule and Paget's disease of the skull, you need to follow-up with an tool and die supervisor, you have new PCP will refer you. -You also had some abnormal thyroid function test. Your blood thyroid level is normal at this time, but she needs to follow-up with an tool and die supervisor, your TSH level needs to be checked in 4 to 6 weeks. You have a left adrenal nodule, you need to follow-up with a urologist as an outpatient. Lung nodule; recommend follow-up CT scan of chest in 3 to 6 months Follow up with: PRIMARY CARE,MD [Primary Care Provider] - 7 Days Forms: Discharge Signature Page Prescriptions: AtorvaSTATin [Lipitor] 40 mg PO QHS #90 tablet amLODIPine 10 mg PO DAILY #90 tab hydroCHLOROthiazide [HCTZ] 25 mg PO QDAY #90 tablet lisinopriL [Zestril TAB] 40 mg PO QDAY #90 tablet
[2019-12-02] MEDS ORDERED: hydroCHLOROthiazide 12.5 MG CAP PO SCH (09:12)
[2019-12-02] MEDS ORDERED: LISINOPRIL 40 MG TAB PO SCH (10:00)
[2019-12-02] MEDS: ASPIRIN 325 MG TAB PO SCH (10:24)
[2019-12-02] MEDS: amLODIPine 10 MG TAB PO SCH (10:24)
[2019-12-02] MEDS: FAMOTIDINE 20 MG/2 ML INJ IV SCH (10:24)
[2019-12-02] MEDS: HEPARIN 5,000 UNIT/1 ML VIAL SUB-Q SCH (10:24)
[2019-12-02] MEDS: cefTRIAXone/NS 1 GM/50 ML 1 GM/50 ML BAG IV SCH (10:25)
[2019-12-02 11:47] VITALS: BP 174/67
--- NOTE | 2019-12-02 12:20 | Treadmill Report ---
REASON FOR STUDY: Chest pain. READING PHYSICIAN: Dr. Cervantes. IMAGING PROTOCOL: The patient received 10 mCi of Technetium 99m Tetrofosmin for resting image and 28 mCi of Technetium 99m Tetrofosmin for stress imaging. The imaging for the whole procedure was completed 30-90 minutes following the initial injection of Technetium 99m Tetrofosmin. The SPECT imaging in the 180 degree arc was performed in the right anterior oblique projection. Computerized reconstruction of the images was performed for analysis. IMAGING RESULTS: Normal cavity size from stress to rest. Normal distribution of radionuclide in the anterior, inferior, septal, and apical regions. Gated SPECT, EF 64% with no wall motion abnormality. The patient infused Lexiscan with no EKG changes. SUMMARY: 1. Negative Lexiscan EKG. 2. Normal rest and stress myocardial perfusion scan. No significant stress ischemia. No wall motion abnormality. Gated SPECT, EF 64%. JOB# [id number] LILIAN/YOVANA
--- NOTE | 2019-12-02 18:18 | Consultation ---
History of Present Illness Consult date: 12/02/19 Chief complaint: adrenal mass - History of present illness History of present illness: 74 yo F who was admitted with accelerated hypertension. Pt has been taking medications for her HTN and ran out of those medications some time ago. She has not been seeing a doctor for many years. Surgery is consulted for incidental adrenal mass seen on CT scan A/P. Pt denies palpitation, SIDDIQUI, CP, sweating. She has been hypertensive because as mentioned, she has not been taking her medications. No f/c. She does admit to dyspnea on exertion. Past History Past Medical History: hypertension, other (As noted in HPI) Past Surgical History: Other (Oophorectomy) Social history: no significant social history Family history: diabetes Medications and Allergies Allergies Allergy/AdvReac Type Severity Reaction Status Date / Time No Known Allergies Allergy Verified 11/30/19 17:15 Home Medications Medication Instructions Recorded Confirmed Last Taken Type AtorvaSTATin [Lipitor] 40 mg PO QHS #90 tablet 12/02/19 Unknown Rx amLODIPine 10 mg PO DAILY #90 tab 12/02/19 Unknown Rx hydroCHLOROthiazide [HCTZ] 25 mg PO QDAY #90 tablet 12/02/19 Unknown Rx lisinopriL [Zestril TAB] 40 mg PO QDAY #90 tablet 12/02/19 Unknown Rx Review of Systems All systems: negative (10 pt ROS performed and negative except for that listed in HPI) Exam Vital Signs Temp Pulse Resp BP Pulse Ox 97.2 F L 69 17 207/180 95 11/30/19 15:20 11/30/19 15:20 11/30/19 15:20 11/30/19 15:20 11/30/19 15:20 Narrative exam: Gen: AAOx3. NAD ENT: no scleral icterus CV: s1, S2+ Resp: dyspnea while speaking Abd: soft, NT Ext: no c/c/e Results - Labs 12/01/19 04:31 12/01/19 04:31 Thyroid panel 12/02/19 Range/Units 03:37 Thyroxine (T4) 5.9 (4.0-12.0) ug/dL Pituitary panel 12/02/19 Range/Units 03:37 Thyroxine (T4) 5.9 (4.0-12.0) ug/dL - Imaging CT scan - abdomen: report reviewed, image reviewed CT scan - pelvis: report reviewed, image reviewed Assessment and Plan 74 yo F with incidental 2.8 cm L adrenal mass Plan: 1. outpatient w/u and management of adrenal mass- will refer patient to Dr. Gomez at [place] 2. management of chronic medical issues per 1' service Discussed plan with family and patient. Thank you, please call with questions
== END 2019-12-02 14:00 | disposition home or self-care (01) ==
LOC: ED 15:12 → 4A 20:03
PROVIDERS: ADMIT Internal Medicine Geriatric Medicine; ATTEND Internal Medicine
DX: I67.4 Hypertensive encephalopathy (principal); I16.0 Hypertensive urgency; E87.6 Hypokalemia; R27.0 Ataxia, unspecified; R07.9 Chest pain, unspecified; E05.90 Thyrotoxicosis, unspecified without thyrotoxic crisis or storm; M88.0 Osteitis deformans of skull
CPT/HCPCS: 36415; 70450; 71275; 74174; 78452; 80048; 80053; 80061; 81001; 82550; 82553; 82962; 83036; 83735; 84436; 84439; 84443; 84484; 85025; 85610; 85670; 85730; 92610; 93005; 93010; 93017; 93306; 94760; 96365; 96366; 96367; 96368; 96372; 96375; 96376; 97161; 97165; 99291; A9270; A9502; G0378; J0360; J0696; J1644; J2270; J2785; J3480; J7050; Q9967; 80320; G0480

== ENCOUNTER 2022-03-23 16:30 | Emergency (ER) | payer MEDICARE ==
[2022-03-23 18:49] LABS: Basophils % (Auto) 0.5 % (0.0-1.8); Eosinophils # (Auto) 0.1 K/mm3 (0.0-0.4); Eosinophils % (Auto) 1.9 % (0.0-4.3); Hematocrit 28.3 % (30.3-42.9); Lymphocytes # (Auto) 1.5 K/mm3 (1.2-5.4); Lymphocytes % (Auto) 23.8 % (13.4-35.0); Mean Corpuscular HGB Conc 32 % (30-34); Mean Corpuscular Volume 85 fl (79-97); Monocytes # (Auto) 0.6 K/mm3 (0.0-0.8); Monocytes % (Auto) 9.3 % (0.0-7.3); Platelet Count 245 K/mm3 (140-440); Red Blood Count 3.32 M/mm3 (3.65-5.03); Red Cell Distribution Width 15.6 % (13.2-15.2)
[2022-03-23 19:05] LABS: Calcium 9.1 mg/dL (8.4-10.2)
--- NOTE | 2022-03-24 00:37 | Emergency Department Report ---
ED General Adult HPI - General Chief complaint: Extremity Injury, Lower Stated complaint: SWELLING Time Seen by Provider: 03/24/22 00:20 Source: patient Mode of arrival: Ambulatory Limitations: No Limitations - History of Present Illness Initial comments: Patient is 76 years old female with history of coronary artery disease status post stent 2 weeks ago. Patient also had history of high blood pressure. Patient presented to the ER complaining of bilateral lower extremity swelling. Patient stated that the swelling started on the right side 2 days ago. Right side is swollen more than the left side. She also reported mild shortness of breath. She denied any fever or chills. - Related Data Previous Rx's Medication Instructions Recorded Last Taken Type AtorvaSTATin [Lipitor] 40 mg PO QHS #90 tablet 12/02/19 Unknown Rx amLODIPine 10 mg PO DAILY #90 tab 12/02/19 Unknown Rx hydroCHLOROthiazide [HCTZ] 25 mg PO QDAY #90 tablet 12/02/19 Unknown Rx Allergies Allergy/AdvReac Type Severity Reaction Status Date / Time No Known Allergies Allergy Verified 11/30/19 17:15 ED Review of Systems ROS: Stated complaint: SWELLING Other details as noted in HPI Comment: All other systems reviewed and negative Constitutional: denies: chills, fever Respiratory: shortness of breath. denies: cough Cardiovascular: denies: chest pain, palpitations Gastrointestinal: denies: abdominal pain, nausea, vomiting ED Past Medical Hx - Past Medical History Hx Hypertension: Yes Hx CVA: Yes Hx Heart Attack/AMI: (cardiac stent) Hx Congestive Heart Failure: No Hx Diabetes: No Hx GERD: Yes Hx Asthma: No Hx COPD: No Additional medical history: hyperlipidemia, UTI, back problems previous - Surgical History Additional Surgical History: cardiac stent, hysterectomy - Social History Smoking Status: Never Smoker - Medications Home Medications: Home Medications Medication Instructions Recorded Confirmed Last Taken Type AtorvaSTATin [Lipitor] 40 mg PO QHS #90 tablet 12/02/19 04/07/20 Unknown Rx amLODIPine 10 mg PO DAILY #90 tab 12/02/19 04/07/20 Unknown Rx hydroCHLOROthiazide [HCTZ] 25 mg PO QDAY #90 tablet 12/02/19 04/07/20 Unknown Rx ED Physical Exam - General Limitations: No Limitations General appearance: alert, in no apparent distress - Head Head exam: Present: atraumatic, normocephalic, normal inspection - Eye Eye exam: Present: normal appearance - ENT ENT exam: Present: normal exam, normal orophraynx, mucous membranes moist - Neck Neck exam: Present: normal inspection. Absent: tenderness, meningismus - Respiratory Respiratory exam: Present: normal lung sounds bilaterally - Cardiovascular Cardiovascular Exam: Present: regular rate, normal rhythm, normal heart sounds - GI/Abdominal GI/Abdominal exam: Present: soft, normal bowel sounds. Absent: distended, tenderness, guarding, rebound, rigid, mass, bruit, pulsatile mass, hernia - Extremities Exam Extremities exam: Present: normal inspection, full ROM, pedal edema. Absent: tenderness, calf tenderness - Back Exam Back exam: Present: normal inspection, full ROM. Absent: CVA tenderness (R), CVA tenderness (L) - Neurological Exam Neurological exam: Present: alert, oriented X3, CN II-XII intact, normal gait, reflexes normal. Absent: motor sensory deficit - Psychiatric Psychiatric exam: Present: normal mood - Skin Skin exam: Present: warm, intact, normal color ED Course Vital Signs 03/23/22 03/24/22 03/24/22 17:00 00:52 01:01 Temperature 98.5 F Pulse Rate 64 Respiratory 16 Rate Blood Pressure 149/51 179/65 O2 Sat by Pulse 100 99 100 Oximetry 03/24/22 03/24/22 03/24/22 01:15 01:31 01:45 Temperature Pulse Rate Respiratory Rate Blood Pressure 170/62 168/64 179/65 O2 Sat by Pulse 100 99 100 Oximetry 03/24/22 03/24/22 03/24/22 02:01 02:15 02:31 Temperature Pulse Rate Respiratory Rate Blood Pressure 165/60 172/62 144/81 O2 Sat by Pulse 100 100 100 Oximetry 03/24/22 03/24/22 02:45 03:01 Temperature Pulse Rate Respiratory Rate Blood Pressure 163/43 179/69 O2 Sat by Pulse 100 100 Oximetry ED Medical Decision Making - Lab Data Result diagrams: 03/23/22 18:18 03/23/22 18:18 - EKG Data -: EKG Interpreted by Me - Radiology Data Radiology results: report reviewed - Medical Decision Making Patient is 76 years old female with history of coronary artery disease status post stent 2 weeks ago. Patient also had history of high blood pressure. Patient presented to the ER complaining of bilateral lower extremity swelling. Patient stated that the swelling started on the right side 2 days ago. Right side is swollen more than the left side. She also reported mild shortness of breath. She denied any fever or chills. Labs reviewed and showed elevated BNP. Chest x-ray is unremarkable. Bilateral lower extremity Doppler ultrasound is negative for DVT. Patient's symptoms is concerning for CHF exacerbation. Patient received Lasix 40 mg IV. I will start patient on Lasix and advised her to follow-up with her under water assistant in the next 2 to 3 days and to return to the ER if she develop any new symptoms. Critical care attestation.: If time is entered above; I have spent that time in minutes in the direct care of this critically ill patient, excluding procedure time. ED Disposition Clinical Impression: CHF exacerbation, Swelling of both lower extremities Disposition: 01 HOME / SELF CARE / HOMELESS Is pt being admited?: No Condition: Stable Instructions: Heart Failure, Self Care, [id number] Referrals: PRIMARY CARE, [Primary Care Provider] - 3-5 Days
--- NOTE | 2022-03-24 01:29 | XRay Report ---
CHEST 1 VIEW INDICATION / CLINICAL INFORMATION: sob. COMPARISON: None available. FINDINGS: SUPPORT DEVICES: None. HEART / MEDIASTINUM: No significant abnormality. LUNGS / PLEURA: No significant pulmonary abnormality. BONES: No significant osseous abnormality. ADDITIONAL FINDINGS: No significant additional findings. IMPRESSION: 1. No active cardiopulmonary disease. Signer Name: Jordan Jimenes II, MD Signed: 03/24/2022 1:24 AM Workstation Name: [id number]
--- NOTE | 2022-03-24 03:34 | Vascular Lab Report ---
DUPLEX DOPPLER LOWER EXTREMITY VEINS, BILATERAL INDICATION / CLINICAL INFORMATION: Bilateral lower extremity swelling, right more wilman. TECHNIQUE: Duplex doppler imaging was performed through the veins of both lower extremities using reanna ous compression and other maneuvers. COMPARISON: None available. FINDINGS: RIGHT COMMON FEMORAL VEIN: Negative. RIGHT FEMORAL VEIN: Negative. RIGHT POPLITEAL VEIN: Negative. RIGHT CALF VEINS: Negative. LEFT COMMON FEMORAL VEIN: Negative. LEFT FEMORAL VEIN: Negative. LEFT POPLITEAL VEIN: Negative. LEFT CALF VEINS: Negative. ADDITIONAL FINDINGS: None. IMPRESSION: 1. No sonographic evidence for DVT in either lower extremity. Signer Name: Jordan Jimenes II, MD Signed: 03/24/2022 3:29 AM Workstation Name: [id number]
[2022-03-24] MEDS ORDERED: FUROSEMIDE 40 MG/4 ML INJ IV ONE (04:19)
[2022-03-24 04:46] VITALS: BP 154/63
== END 2022-03-24 04:51 | disposition home or self-care (01) ==
LOC: ED 16:30
DX: I50.9 Heart failure, unspecified (principal); I11.0 Hypertensive heart disease with heart failure; M25.40 Effusion, unspecified joint; K21.9 Gastro-esophageal reflux disease without esophagitis; Z86.73 Personal history of transient ischemic attack (TIA), and cerebral infarction without residual deficits; Z79.899 Other long term (current) drug therapy
CPT/HCPCS: 36415; 71045; 80053; 83880; 85025; 85379; 93970; 96374; 99284; J1940